=== PATIENT | female | born 1950 | race Caucasian/White ===

== ENCOUNTER 2018-02-24 19:26 | Inpatient (IN) | payer MEDICARE, OTHER ==
[~2018-02-24] VITALS: Ht 170.2 cm; Wt 64.9 kg
[~2018-02-24 19:26] MED LIST: ETOMIDATE 20 MG/10 ML ONE; PROPOFOL 10 MG/ML, 100ML IV ONE; SUCCINYLCHOLINE 20 MG/ML, 10ML ONE
[2018-02-24] MEDS ORDERED: ALBUTEROL 0.5%, 20ML ONE (19:41)
[2018-02-24] MEDS: PROPOFOL 100 ML IV PRN ×3 (19:57→21:09)
[2018-02-24] MEDS ORDERED: SUCCINYLCHOLINE 20 MG/ML, 10ML IVPush ONE (20:00)
[2018-02-24] MEDS ORDERED: MAGNESIUM SULFATE PMX 2GM/50ML 50 ML IV ONE (20:00)
[2018-02-24] MEDS ORDERED: MIDAZOLAM 1 MG/ML, 5ML IVP ONE (20:00)
[2018-02-24] MEDS ORDERED: ALBUTEROL 0.5%, 20ML NPPB SCH (20:00)
[2018-02-24] MEDS ORDERED: SODIUM CHLORIDE FLUSH 10ML SYR IVF ONE (20:00)
[2018-02-24] MEDS ORDERED: IPRATROPIUM 0.5 MG/2.5 ML INHA NPPB ONE (20:00)
[2018-02-24] MEDS ORDERED: methylPREDNISolone SOD SUCC 125 MG/2 ML IVP ONE (20:00)
[2018-02-24] MEDS ORDERED: AZITHROMYCIN 500 MG in SODIUM CHLORIDE 0.9% 250 ML IVPB ONE (20:00)
[2018-02-24] MEDS ORDERED: SODIUM CHLORIDE 0.9% 1,000ML IVBOLUS ONE ×2 (20:00→21:00)
[2018-02-24] MEDS ORDERED: CEFTRIAXONE PMX 1GM/50ML 50 ML IVPB ONE (20:00)
[2018-02-24] MEDS ORDERED: ETOMIDATE 20 MG/10 ML IV ONE (20:00)
[2018-02-24 20:10] LABS: BASOPHILS # (AUTO) 0.06 x10^3/uL (0-0.1); BASOPHILS % (AUTO) 1 % (0-1); EOSINOPHILS % (AUTO) 1 % (1-7); LYMPHOCYTES # (AUTO) 3.88 x10^3/uL (1-3.4); LYMPHOCYTES % (AUTO) 45 % (22-44); MD NO; MEAN CORPUSCULAR HEMOGLOBIN 31.5 pg (27.0-34.8); MEAN CORPUSCULAR HGB CONC 33.1 g/dL (32.4-35.8); MEAN CORPUSCULAR VOLUME 95.2 fL (80-100); MEAN PLATELET VOLUME 10.2 fL (7.4-10.4); MONOCYTES # (AUTO) 1.13 x10^3/uL (0.2-0.8); MONOCYTES % (AUTO) 13 % (2-9); NEUTROPHILS # (AUTO) 3.39 x10^3/uL (1.8-6.8); NEUTROPHILS % (AUTO) 40 % (42-75); PLATELET COUNT 159 x10^3/uL (130-400); RED BLOOD COUNT 4.05 x10^6/uL (3.82-5.3); RED CELL DISTRIBUTION WIDTH 13.8 % (9.6-15.2)
[2018-02-24 20:18] LABS: ALBUMIN 2.9 g/dL (3.4-5.0); ANION GAP 8 mmol/L (5-15); CALCIUM 7.4 mg/dL (8.5-10.1); CHLORIDE 96 mmol/L (98-107)
[2018-02-24 20:26] LABS: ALANINE AMINOTRANSFERASE 34 U/L (12-78); ALKALINE PHOSPHATASE 101 U/L (45-117); BILIRUBIN,TOTAL 0.2 mg/dL (0.2-1.0); CREATININE 0.96 mg/dL (0.55-1.02); TOTAL PROTEIN 6.4 g/dL (6.4-8.2)
[2018-02-24] MEDS ORDERED: SODIUM CHLORIDE 0.9% 1,000 ML IV SCH (20:37)
[2018-02-24 20:41] LABS: TROPONIN I 0.739 ng/mL (0.000-0.045)
[2018-02-24] MEDS ORDERED: SODIUM CHLORIDE 0.9% 1,000 ML IV ONE (20:53)
[2018-02-24] MEDS: methylPREDNISolone SOD SUCC 125 MG/2 ML IVPush SCH (21:00)
[2018-02-24] MEDS ORDERED: ONDANSETRON 2MG/ML, 2ML IVPush PRN (21:00)
[2018-02-24] MEDS ORDERED: ASPIRIN 300 MG SUPP PR ONE (21:00)
[2018-02-24] MEDS ORDERED: HEPARIN 5,000 UNITS/ML, 1ML SQ SCH (21:00)
[2018-02-24] MEDS ORDERED: ACETAMINOPHEN 650 MG SUPP PR PRN (21:00)
[2018-02-24] MEDS ORDERED: DEXMEDETOMIDINE 200 MCG in SODIUM CHLORIDE 0.9% 48 ML IV PRN (21:00)
[2018-02-24] MEDS ORDERED: methylPREDNISolone SOD SUCC 125 MG/2 ML ONE (21:07)
[2018-02-24] MEDS ORDERED: FAMOTIDINE 20 MG/2 ML ONE (21:07)
[2018-02-24] MEDS ORDERED: CEFTRIAXONE PMX 1GM/50ML 50 ML ONE (21:07)
[2018-02-24] MEDS: FAMOTIDINE 20 MG/2 ML IVPush SCH (21:16)
[2018-02-24] MEDS ORDERED: LIDOCAINE-MPF 1%, 2ML ENDO PRN (22:30)
[2018-02-24] MEDS: MIDAZOLAM HCL 25 MG in SODIUM CHLORIDE 0.9% 245 ML IV SCH (22:51)
[2018-02-25] MEDS ORDERED: ASPI-496 PO (00:03)
[2018-02-25] MEDS ORDERED: ACET650S21 PO (00:03)
[2018-02-25] MEDS ORDERED: DUONEB INH (00:03)
[2018-02-25] MEDS ORDERED: LATA2.5D2 EACHEYE (00:03)
[2018-02-25] MEDS ORDERED: BRIM5DRO3 RIGHTEYE (00:03)
[2018-02-25] MEDS ORDERED: SENN1TAB7 PO (00:03)
[2018-02-25] MEDS ORDERED: CRAN1CAP8 PO (00:03)
[2018-02-25] MEDS ORDERED: GALA8CAP PO (00:03)
[2018-02-25] MEDS ORDERED: MEMA10TA PO (00:03)
[2018-02-25] MEDS ORDERED: QUET50TA PO (00:03)
[2018-02-25] MEDS ORDERED: BENZ-17 PO (00:03)
[2018-02-25] MEDS ORDERED: LEVO75TA5 PO (00:03)
[2018-02-25] MEDS ORDERED: MULT-6 PO (00:03)
[2018-02-25] MEDS ORDERED: HYDR10TA4 PO (00:03)
[2018-02-25] MEDS ORDERED: ESCI20TA PO (00:03)
[2018-02-25] MEDS ORDERED: THIO5CAP2 PO (00:03)
[2018-02-25] MEDS: SODIUM CHLORIDE 0.9% 1,000 ML IV SCH ×2 (01:27→17:28)
[2018-02-25] MEDS: ALBUTEROL/IPRATROPIUM 2.5MG/0.5MG, 3 ML INLINE SCH ×6 (02:10→23:09)
[2018-02-25] MEDS ORDERED: AZITHROMYCIN 500 MG in SODIUM CHLORIDE 0.9% 250 ML IV ONE (02:30)
[2018-02-25] MEDS: NOREPINEPHRINE 4 MG in SODIUM CHLORIDE 0.9% 246 ML IV PRN ×2 (03:20→06:55)
[2018-02-25] MEDS: MIDAZOLAM HCL 25 MG in SODIUM CHLORIDE 0.9% 245 ML IV SCH ×5 (03:21→21:54)
[2018-02-25 04:00] VITALS: BP 98/66
[2018-02-25 04:23] LABS: BASOPHILS # (AUTO) 0.03 x10^3/uL (0-0.1); BASOPHILS % (AUTO) 1 % (0-1); EOSINOPHILS % (AUTO) 0 % (1-7); LYMPHOCYTES # (AUTO) 0.55 x10^3/uL (1-3.4); LYMPHOCYTES % (AUTO) 10 % (22-44); MD NO; MEAN CORPUSCULAR HEMOGLOBIN 31.7 pg (27.0-34.8); MEAN CORPUSCULAR HGB CONC 33.3 g/dL (32.4-35.8); MEAN CORPUSCULAR VOLUME 95.3 fL (80-100); MEAN PLATELET VOLUME 9.8 fL (7.4-10.4); MONOCYTES % (AUTO) 7 % (2-9); NEUTROPHILS # (AUTO) 4.46 x10^3/uL (1.8-6.8); NEUTROPHILS % (AUTO) 82 % (42-75); PLATELET COUNT 112 x10^3/uL (130-400); RED BLOOD COUNT 3.84 x10^6/uL (3.82-5.3); RED CELL DISTRIBUTION WIDTH 13.8 % (9.6-15.2)
[2018-02-25 04:35] LABS: ALBUMIN 2.3 g/dL (3.4-5.0); ANION GAP 12 mmol/L (5-15); CALCIUM 6.1 mg/dL (8.5-10.1); CHLORIDE 110 mmol/L (98-107)
[2018-02-25 04:39] LABS: ALANINE AMINOTRANSFERASE 78 U/L (12-78); ALKALINE PHOSPHATASE 123 U/L (45-117); BILIRUBIN,TOTAL 0.3 mg/dL (0.2-1.0); CREATININE 0.58 mg/dL (0.55-1.02)
[2018-02-25] MEDS: methylPREDNISolone SOD SUCC 125 MG/2 ML IVPush SCH ×3 (05:33→20:26)
[2018-02-25] MEDS ORDERED: MAGNESIUM SULFATE PMX 4GM/100M 100 ML IV ONE (07:00)
[2018-02-25] MEDS ORDERED: HEPARIN 25,000 UNITS/500ML PMX 500 ML IV PRN (07:30)
[2018-02-25] MEDS ORDERED: HEPARIN 5,000 UNITS/ML, 1ML IV ONE (07:30)
[2018-02-25] MEDS ORDERED: HEPARIN 5,000 UNITS/ML, 1ML IV PRN (07:30)
[2018-02-25] MEDS: ASPIRIN 325 MG TABLET PO SCH (08:31)
[2018-02-25] MEDS: POTASSIUM CHLORIDE 10% 40 MEQ/30 ML UDC PO SCH ×2 (08:32→20:26)
[2018-02-25] MEDS ORDERED: SODIUM CHLORIDE 0.9% 1,000ML IVBOLUS ONE (09:00)
[2018-02-25 09:15] LABS: MICROSCOPIC INDICATED
[2018-02-25 09:30] LABS: CULTURE INDICATED? YES
[2018-02-25 10:27] LABS: HIT RESULT POSITIVE (NEGATIVE)
[2018-02-25] MEDS: NOREPINEPHRINE 8 MG in SODIUM CHLORIDE 0.9% 242 ML IV PRN (10:43)
[2018-02-25] MEDS ORDERED: INSULIN LISPRO 100 UNITS/ML, PEN SQ-INSULIN SCH (11:00)
[2018-02-25] MEDS ORDERED: INSULIN LISPRO 100 UNITS/ML, PEN ONE (12:09)
[2018-02-25] MEDS: FAMOTIDINE 20 MG/2 ML IVPush SCH ×2 (12:15→20:26)
[2018-02-25] MEDS: INSULIN LISPRO 100 UNITS/ML, PEN SQ-INSULIN SCH ×3 (12:35→23:00)
[2018-02-25] MEDS ORDERED: VANCOMYCIN PER PHARMACY MC PRN (15:30)
[2018-02-25] MEDS ORDERED: PHARMACOKINETIC MONITORING MC PRN (15:30)
[2018-02-25] MEDS ORDERED: VANCOMYCIN PMX 1GM/200ML 200 ML IV SCH (15:30)
[2018-02-26] MEDS: SODIUM CHLORIDE 0.9% 1,000 ML IV SCH ×3 (01:25→16:40)
[2018-02-26] MEDS: NOREPINEPHRINE 8 MG in SODIUM CHLORIDE 0.9% 242 ML IV PRN (01:56)
[2018-02-26] MEDS: MIDAZOLAM HCL 25 MG in SODIUM CHLORIDE 0.9% 245 ML IV SCH (01:56)
[2018-02-26] MEDS: ALBUTEROL/IPRATROPIUM 2.5MG/0.5MG, 3 ML INLINE SCH ×6 (02:14→22:36)
[2018-02-26] MEDS ORDERED: CEFAZOLIN 2,000 MG in DEXTROSE 5% 100 ML IV SCH (03:30)
[2018-02-26 04:08] VITALS: BP 106/79
[2018-02-26 04:33] LABS: BASOPHILS # (AUTO) 0.03 x10^3/uL (0-0.1); BASOPHILS % (AUTO) 0 % (0-1); EOSINOPHILS # (AUTO) 0.01 x10^3/uL (0-0.4); EOSINOPHILS % (AUTO) 0 % (1-7); LYMPHOCYTES # (AUTO) 1.29 x10^3/uL (1-3.4); LYMPHOCYTES % (AUTO) 9 % (22-44); MD NO; MEAN CORPUSCULAR HEMOGLOBIN 31.1 pg (27.0-34.8); MEAN CORPUSCULAR HGB CONC 33.2 g/dL (32.4-35.8); MEAN CORPUSCULAR VOLUME 93.5 fL (80-100); MEAN PLATELET VOLUME 10.4 fL (7.4-10.4); MONOCYTES # (AUTO) 1.26 x10^3/uL (0.2-0.8); MONOCYTES % (AUTO) 9 % (2-9); NEUTROPHILS # (AUTO) 11.61 x10^3/uL (1.8-6.8); NEUTROPHILS % (AUTO) 82 % (42-75); PLATELET COUNT 148 x10^3/uL (130-400); RED BLOOD COUNT 3.86 x10^6/uL (3.82-5.3); RED CELL DISTRIBUTION WIDTH 14.1 % (9.6-15.2)
[2018-02-26 04:40] LABS: ANION GAP 10 mmol/L (5-15); CALCIUM 7.3 mg/dL (8.5-10.1); CHLORIDE 115 mmol/L (98-107); CREATININE 0.59 mg/dL (0.55-1.02)
[2018-02-26] MEDS ORDERED: NOREPINEPHRINE 16 MG in SODIUM CHLORIDE 0.9% 234 ML IV PRN (04:43)
[2018-02-26] MEDS ORDERED: NOREPINEPHRINE 8 MG in SODIUM CHLORIDE 0.9% 242 ML IV PRN (04:53)
[2018-02-26] MEDS: INSULIN LISPRO 100 UNITS/ML, PEN SQ-INSULIN SCH ×4 (05:00→23:06)
[2018-02-26] MEDS: MIDAZOLAM HCL 50 MG in SODIUM CHLORIDE 0.9% 240 ML IV SCH ×3 (05:05→18:31)
[2018-02-26] MEDS: ASPIRIN 325 MG TABLET PO SCH (05:16)
[2018-02-26] MEDS: methylPREDNISolone SOD SUCC 125 MG/2 ML IVPush SCH ×3 (05:17→20:01)
[2018-02-26] MEDS ORDERED: AMPICILLIN/SULBACTAM 3 GM in SODIUM CHLORIDE 0.9% 100 ML IV SCH (07:30)
[2018-02-26] MEDS: FAMOTIDINE 20 MG/2 ML IVPush SCH ×2 (08:46→20:01)
[2018-02-26] MEDS: FONDAPARINUX 2.5 MG/0.5 ML SQ SCH (10:48)
[2018-02-26] MEDS: CEFAZOLIN PMX 2GM/50ML 50 ML IV SCH ×2 (12:12→19:21)
[2018-02-27] MEDS: MIDAZOLAM HCL 50 MG in SODIUM CHLORIDE 0.9% 240 ML IV SCH ×4 (00:22→23:02)
[2018-02-27] MEDS: SODIUM CHLORIDE 0.9% 1,000 ML IV SCH ×3 (00:22→20:11)
[2018-02-27] MEDS: CEFAZOLIN 2,000 MG in DEXTROSE 5% 100 ML IV SCH ×3 (03:09→19:17)
[2018-02-27] MEDS: ALBUTEROL/IPRATROPIUM 2.5MG/0.5MG, 3 ML INLINE SCH ×6 (03:30→22:18)
[2018-02-27 03:40] VITALS: BP 111/76
[2018-02-27 04:12] LABS: BASOPHILS # (AUTO) 0.01 x10^3/uL (0-0.1); BASOPHILS % (AUTO) 0 % (0-1); EOSINOPHILS % (AUTO) 0 % (1-7); LYMPHOCYTES # (AUTO) 0.65 x10^3/uL (1-3.4); LYMPHOCYTES % (AUTO) 5 % (22-44); MD NO; MEAN CORPUSCULAR HEMOGLOBIN 30.8 pg (27.0-34.8); MEAN CORPUSCULAR HGB CONC 32.9 g/dL (32.4-35.8); MEAN CORPUSCULAR VOLUME 93.7 fL (80-100); MEAN PLATELET VOLUME 10.9 fL (7.4-10.4); MONOCYTES # (AUTO) 0.66 x10^3/uL (0.2-0.8); MONOCYTES % (AUTO) 5 % (2-9); NEUTROPHILS # (AUTO) 11.61 x10^3/uL (1.8-6.8); NEUTROPHILS % (AUTO) 90 % (42-75); PLATELET COUNT 120 x10^3/uL (130-400); RED CELL DISTRIBUTION WIDTH 14.8 % (9.6-15.2)
[2018-02-27 04:21] LABS: ANION GAP 9 mmol/L (5-15); CALCIUM 7.5 mg/dL (8.5-10.1); CHLORIDE 115 mmol/L (98-107); CREATININE 0.67 mg/dL (0.55-1.02)
[2018-02-27] MEDS: methylPREDNISolone SOD SUCC 125 MG/2 ML IVPush SCH ×3 (05:12→20:11)
[2018-02-27] MEDS: INSULIN LISPRO 100 UNITS/ML, PEN SQ-INSULIN SCH ×4 (05:12→22:24)
[2018-02-27] MEDS: ASPIRIN 325 MG TABLET PO SCH (05:12)
[2018-02-27] MEDS: FAMOTIDINE 20 MG/2 ML IVPush SCH ×2 (09:21→20:11)
[2018-02-27] MEDS: FONDAPARINUX 2.5 MG/0.5 ML SQ SCH (09:22)
[2018-02-27] MEDS ORDERED: FENTANYL PF 100 MCG/2ML IVPush PRN (15:30)
[2018-02-28] MEDS: SODIUM CHLORIDE 0.9% 1,000 ML IV SCH ×2 (02:19→08:24)
[2018-02-28] MEDS: ALBUTEROL/IPRATROPIUM 2.5MG/0.5MG, 3 ML INLINE SCH ×2 (03:00→06:10)
[2018-02-28] MEDS: CEFAZOLIN 2,000 MG in DEXTROSE 5% 100 ML IV SCH ×3 (03:30→20:24)
[2018-02-28 04:38] VITALS: BP 116/72
[2018-02-28] MEDS: methylPREDNISolone SOD SUCC 125 MG/2 ML IVPush SCH ×2 (05:03→14:35)
[2018-02-28] MEDS: MIDAZOLAM HCL 50 MG in SODIUM CHLORIDE 0.9% 240 ML IV SCH (05:03)
[2018-02-28] MEDS: ASPIRIN 325 MG TABLET PO SCH (05:03)
[2018-02-28] MEDS: INSULIN LISPRO 100 UNITS/ML, PEN SQ-INSULIN SCH ×3 (05:03→17:00)
[2018-02-28 05:09] LABS: ANION GAP 8 mmol/L (5-15); CALCIUM 7.3 mg/dL (8.5-10.1); CHLORIDE 114 mmol/L (98-107); CREATININE 0.73 mg/dL (0.55-1.02)
[2018-02-28 05:48] LABS: BASOPHILS # (AUTO) 0.01 x10^3/uL (0-0.1); BASOPHILS % (AUTO) 0 % (0-1); EOSINOPHILS % (AUTO) 0 % (1-7); LYMPHOCYTES # (AUTO) 0.57 x10^3/uL (1-3.4); LYMPHOCYTES % (AUTO) 5 % (22-44); MD SCAN; MEAN CORPUSCULAR HEMOGLOBIN 31.1 pg (27.0-34.8); MEAN CORPUSCULAR HGB CONC 32.8 g/dL (32.4-35.8); MEAN CORPUSCULAR VOLUME 94.7 fL (80-100); MEAN PLATELET VOLUME 11.8 fL (7.4-10.4); MONOCYTES # (AUTO) 0.28 x10^3/uL (0.2-0.8); MONOCYTES % (AUTO) 3 % (2-9); NEUTROPHILS # (AUTO) 9.79 x10^3/uL (1.8-6.8); NEUTROPHILS % (AUTO) 92 % (42-75); PLATELET COUNT 132 x10^3/uL (130-400); RED BLOOD COUNT 3.65 x10^6/uL (3.82-5.3); RED CELL DISTRIBUTION WIDTH 14.4 % (9.6-15.2)
[2018-02-28] MEDS: MORPHINE SULFATE 4 MG/ML, 1ML IVPush PRN ×5 (08:20→16:51)
[2018-02-28] MEDS: LORazepam 2 MG/ML, 1ML IVPush PRN ×4 (08:39→16:51)
[2018-02-28] MEDS: FAMOTIDINE 20 MG/2 ML IVPush SCH (09:00)
[2018-02-28] MEDS: FONDAPARINUX 2.5 MG/0.5 ML SQ SCH (12:16)
[2018-02-28] MEDS ORDERED: RANITIDINE 50 MG in SODIUM CHLORIDE 0.9% 100 ML IV SCH ×2 (12:30→17:00)
[2018-02-28] MEDS ORDERED: ATROPINE OPHTH SOLN 1%, 2ML PO PRN (19:00)
[2018-02-28] MEDS ORDERED: RANITIDINE 25 MG/ML, 2ML IV SCH (21:00)
[2018-02-28] MEDS: LORazepam 2 MG/ML, 1ML IV PRN (23:42)
[2018-03-01] MEDS ORDERED: RANITIDINE 50 MG in DEXTROSE 5% 100 ML IV SCH (01:00)
[2018-03-01] MEDS: LORazepam 2 MG/ML, 1ML IV PRN ×2 (01:02→19:55)
[2018-03-01] MEDS ORDERED: SCOPOLAMINE PATCH, 1.5MG PATCH.TD72 TD ONE (01:43)
[2018-03-01] MEDS: ATROPINE OPHTH SOLN 1%, 2ML PO PRN ×5 (01:58→19:48)
[2018-03-01] MEDS ORDERED: SCOPOLAMINE PATCH, 1.5MG PATCH.TD72 TD SCH (02:00)
[2018-03-01] MEDS ORDERED: RANITIDINE 50 MG in SODIUM CHLORIDE 0.9% 100 ML IV SCH (17:00)
== END 2018-03-01 23:10 | disposition expired | DRG 871 ==
LOC: ED 19:36 → SUATTDRO 20:23 → EDIP 21:07 → CCU 23:20 → 3NW 03-01 01:15
PROVIDERS: ADMIT Hospitalist; ATTEND Hospitalist
PROC: 5A1945Z Respiratory Ventilation, 24-96 Consecutive Hours (ICD-10-PCS; principal; 2018-02-24)
PROC: 0BH17EZ Insertion of Endotracheal Airway into Trachea, Via Natural or Artificial Opening (ICD-10-PCS; 2018-02-24)
PROC: 0T9B70Z Drainage of Bladder with Drainage Device, Via Natural or Artificial Opening (ICD-10-PCS; 2018-02-24)
PROC: 5A09357 Assistance with Respiratory Ventilation, Less than 24 Consecutive Hours, Continuous Positive Airway Pressure (ICD-10-PCS; 2018-02-24)
PROC: 02HV33Z Insertion of Infusion Device into Superior Vena Cava, Percutaneous Approach (ICD-10-PCS; 2018-02-24)
PROC: B548ZZA Ultrasonography of Superior Vena Cava, Guidance (ICD-10-PCS; 2018-02-24)
DX: A41.01 Sepsis due to Methicillin susceptible Staphylococcus aureus (principal); J96.21 Acute and chronic respiratory failure with hypoxia; I21.4 Non-ST elevation (NSTEMI) myocardial infarction; E43 Unspecified severe protein-calorie malnutrition; G93.41 Metabolic encephalopathy; I42.9 Cardiomyopathy, unspecified; Z99.81 Dependence on supplemental oxygen; E86.0 Dehydration; J96.22 Acute and chronic respiratory failure with hypercapnia; J44.1 Chronic obstructive pulmonary disease with (acute) exacerbation; E87.1 Hypo-osmolality and hyponatremia; F03.90 Unspecified dementia, unspecified severity, without behavioral disturbance, psychotic disturbance, mood disturbance, and anxiety; T38.0X5A Adverse effect of glucocorticoids and synthetic analogues, initial encounter; Z51.5 Encounter for palliative care; Z66 Do not resuscitate; Z87.891 Personal history of nicotine dependence; R73.9 Hyperglycemia, unspecified; Z68.22 Body mass index [BMI] 22.0-22.9, adult; Y92.89 Other specified places as the place of occurrence of the external cause
CPT/HCPCS: 31500; 36415; 36569; 36600; 71045; 80048; 80053; 81001; 82533; 82803; 82962; 83605; 83735; 83880; 84100; 84478; 84484; 85025; 85520; 86022; 87040; 87070; 87077; 87081; 87086; 87147; 87186; 87205; 93005; 93306; 94002; 94003; 94640; 96361; 96365; 96366; 96367; 96375; J0295; J0456; J0690; J0696; J1644; J2250; J2270; J2704; J2780; J3010; J3370; J7620; J7644; J0330; J1652; J2060; J2930; J3475; J7030; J7050; S0028